=== PATIENT | male | born 1935 | race Caucasian/White ===

== ENCOUNTER 2023-11-03 06:30 | Day surgery (SDC) | payer OTHER ==
--- NOTE | 2023-11-01 10:59 | RAD REPORT ---
EXAM DESCRIPTION: Yamila Fonseca And Lat (2 Views)11/01/2023 10:49 am CLINICAL HISTORY: Preop for angiogram. Coronary arterial disease COMPARISON: 2022 FINDINGS: The lungs appear clear of acute infiltrate. The heart is normal size. Aorta tortuous. Sma ll calcified granuloma left lung IMPRESSION: No acute abnormalities displayed
[2023-11-01 11:09] LABS: Absolute Lymphocytes (CBC) 1.4 K/uL (0.7-4.9); Hematocrit 41.5 % (39.6-49.0); Lymphocytes % 17.6 % (15.3-44.8); MCV 89.4 fL (80-100); MPV 7.9 fL (7.6-11.3); Platelets 290 thou/uL (152-406); RBC Red Blood Cell Count 4.64 M/uL (4.33-5.43)
[2023-11-01 11:15] LABS: Potassium 4.8 mEq/L (3.5-5.1)
[2023-11-01 11:29] LABS: Protime INR 0.97
[2023-11-03] MEDS ORDERED: HEPA 1000U/500MLS 2,000 UNIT/1,000 ML BAG IV ONE (06:53)
[2023-11-03] MEDS ORDERED: LIDOCAINE 1% 20 ML MDV ONE (06:53)
[2023-11-03] MEDS ORDERED: NA CHLORIDE 0.9% 500 ML ONE (06:55)
[2023-11-03] MEDS ORDERED: HEPARIN 5000 UNIT/ML 1 ML VIAL ONE (07:08)
[2023-11-03] MEDS ORDERED: MIDAZOLAM HCL 2 MG/2 ML INJ ONE (07:08)
[2023-11-03] MEDS ORDERED: ATROPINE SULF 1 MG/10 ML SYR IV ONE (07:08)
[2023-11-03] MEDS ORDERED: VERAPAMIL HCL 10 MG/4 ML VIAL IV ONE (07:08)
[2023-11-03] MEDS ORDERED: FENTANYL CITR 100 MCG/2 ML ONE (07:09)
[2023-11-03] MEDS ORDERED: HEPARIN 10,000 UNIT/10 ML VIAL IV ONE (07:09)
[2023-11-03] MEDS ORDERED: CLOPIDOGREL 75 MG TABLET ONE (07:10)
[2023-11-03] MEDS ORDERED: TICAGRELOR 90 MG TABLET PO ONE (07:10)
[2023-11-03] MEDS ORDERED: ASPIRIN 325 MG TAB ONE (07:10)
[2023-11-03 11:33] VITALS: BP 116/66; O2SAT 100
== END 2023-11-03 11:27 | disposition home or self-care (01) ==
LOC: CCL 06:30
PROVIDERS: ATTEND Internal Medicine Interventional Cardiology
DX: I25.10 Atherosclerotic heart disease of native coronary artery without angina pectoris (principal); I71.43 Infrarenal abdominal aortic aneurysm, without rupture; I34.0 Nonrheumatic mitral (valve) insufficiency; I65.23 Occlusion and stenosis of bilateral carotid arteries; E78.5 Hyperlipidemia, unspecified; Z95.5 Presence of coronary angioplasty implant and graft; Z79.82 Long term (current) use of aspirin; Z79.899 Other long term (current) drug therapy
CPT/HCPCS: 85025; 80048; 36415; 85610; 85347 ×2; 85730; 71046; 93458; 76937; C1893; Q9967; C1725; C9600; J1644; J2001; J2250; J3010; J7040; 99152; 99153; J0461